=== PATIENT | male | born 1945 | race Caucasian/White ===

== ENCOUNTER → 2017-01-27 | Outpatient (CLI) | payer OTHER, MEDICARE | LOC: BMCIMAGING 09:37 | PROVIDERS: ATTEND Orthopaedic Surgery Orthopaedic Surgery of the Spine | DX: Z09 Encounter for follow-up examination after completed treatment for conditions other than malignant neoplasm (principal); Z98.1 Arthrodesis status ==

== ENCOUNTER → 2017-04-26 | Outpatient (CLI) | payer OTHER, MEDICARE | LOC: BMCIMAGING 13:39 | PROVIDERS: ATTEND Orthopaedic Surgery Orthopaedic Surgery of the Spine | DX: Z98.1 Arthrodesis status (principal) ==

== ENCOUNTER → 2017-07-27 | Outpatient (CLI) | payer OTHER, MEDICARE | LOC: BMCIMAGING 13:45 | PROVIDERS: ATTEND Orthopaedic Surgery Orthopaedic Surgery of the Spine | DX: M50.33 Other cervical disc degeneration, cervicothoracic region (principal); Z98.1 Arthrodesis status ==

== ENCOUNTER → 2017-08-15 | Outpatient (CLI) | payer OTHER, MEDICARE | LOC: BMCIMAGING 14:47 | PROVIDERS: ATTEND Orthopaedic Surgery Orthopaedic Surgery of the Spine | DX: Z13.820 Encounter for screening for osteoporosis (principal) ==

== ENCOUNTER → 2018-07-10 | Outpatient (CLI) | payer OTHER, MEDICARE | LOC: BMCIMAGING 13:59 | PROVIDERS: ATTEND Orthopaedic Surgery Hand Surgery | DX: M79.644 Pain in right finger(s) (principal) ==

== ENCOUNTER 2018-08-01 06:46 | Day surgery (SDC) | payer OTHER, MEDICARE ==
[2018-08-01] MEDS ORDERED: LR 1,000 ML IV ONE (07:11)
[2018-08-01] MEDS ORDERED: BUPIVACAINE 0.5% 30 ML SDV ONE (07:54)
[2018-08-01] MEDS ORDERED: ceFAZolin 2 GM/DEXTROSE 100 ML IV ONE (08:21)
--- NOTE | 2018-08-01 08:21 | PDGENHP ---
History & Physical Chief Complaint: BI History of Present Illness: Initially with left groin bulge. Denies redness, drainage. Pain gradually increasing with exercise. Ravi po normally, no N/V. Pertinent Past, Social, Family History: HTN, DM II, CAD, tremor. Laminectomy. NKDA Relevant Physical Exam: BIH, L>R. Reducible, NTTP Cardiorespiratory Assessment: RRR, CTA B. A/P: Risks/benefits of lap BIHR reviewed. Questions answered.
[2018-08-01] MEDS ORDERED: MIDAZOLAM 2 MG/2 ML VIAL IVP ONE (08:34)
--- NOTE | 2018-08-01 08:34 | PDANEPAE ---
ANE History of Present Illness bilateral inguinal hernias, here for laparoscopic repair ANE Past Medical History - Cardiovascular History Hx Hypertension: Yes Hx Arrhythmias: No Hx Chest Pain: No Hx Coronary Artery / Peripheral Vascular Disease: No Hx CHF / Valvular Disease: No Hx Palpitations: No Cardiovascular History Comment: NO CP - Pulmonary History Hx COPD: No Hx Asthma/Reactive Airway Disease: No Hx Recent Upper Respiratory Infection: No Hx Oxygen in Use at Home: No Hx Sleep Apnea: No Sleep Apnea Screening Result - Last Documented: Positive Pulmonary History Comment: HERMILA Triggers only - Neurologic History Hx Cerebrovascular Accident: No Hx Seizures: No Hx Dementia: No - Endocrine History Hx Diabetes: Yes Endocrine History Comment: DM II - Renal History Hx Renal Disorders: No Renal History Comment: UTI 05/2018 - Liver History Hx Hepatic Disorders: No - Neurological & Psychiatric Hx Hx Neurological and Psychiatric Disorders: Yes Neurological / Psychiatric History Comment: DEPRESSION - Cancer History Hx Cancer: No - Congenital Disorder History Hx Congenital Disorders: No - GI History Hx Gastrointestinal Disorders: Yes Gastrointestinal History Comment: GERD - Other Health History Other Health History: NEG - Chronic Pain History Chronic Pain: No - Surgical History Prior Surgeries: CERVICAL FUSION. LUMBAR FUSION ANE Review of Systems Review of Systems: - Exercise capacity METS (RN): 5 METS ANE Patient History - Allergies Allergies/Adverse Reactions: No Known Allergies Allergy (Verified 07/17/18 14:22) - Home Medications Home Medications: ALPRAZolam [Xanax 0.25 MG (*)] 06/01/16 [Last Taken 07/31/18] Atenolol [Tenormin 25 mg (*)] 06/01/16 [Last Taken 07/31/18] Atorvastatin Calcium [Lipitor 20 mg (*)] 06/01/16 [Last Taken 07/31/18] Herbals/Supplements -Info Only 06/01/16 [Last Taken 07/25/18] Insulin Glargine,Hum.rec.anlog [Lantus Solostar] 06/01/16 [Last Taken Unknown] Insulin Glargine,Hum.rec.anlog [Lantus Solostar] 06/01/16 [Last Taken 07/31/18 10] Lisinopril [Zestril 10 mg (*)] 06/01/16 [Last Taken 07/31/18] Nateglinide [Starlix] 06/01/16 [Last Taken 07/31/18] Omeprazole [Prilosec 20 mg] 06/01/16 [Last Taken 07/31/18] Ranitidine HCl [Zantac] 06/01/16 [Last Taken 07/31/18] Sertraline HCl [Zoloft 100mg (*)] 06/01/16 [Last Taken 07/31/18] Sertraline HCl [Zoloft 100mg (*)] 50 mg 06/01/16 [Last Taken 07/31/18] metFORMIN SR [Glucophage XR 500 mg (*)] 06/01/16 [Last Taken 07/31/18] sitaGLIPtin PHOSPHATE [Januvia 100 MG (*)] 06/01/16 [Last Taken 07/31/18] Farxiga 05/29/18 [Last Taken 07/31/18] Adult One Daily Multivit Tab 07/17/18 [Last Taken 07/25/18] Tamsulosin HCl 07/17/18 [Last Taken 07/30/18] - NPO status NPO Since - Liquids (Date): 08/01/18 NPO Since - Liquids (Time): 05:00 NPO Since - Solids (Date): 07/31/18 NPO Since - Solids (Time): 21:00 - Smoking Hx Smoking Status: Never smoked - Family Anes Hx Family Hx Anesthesia Complications: NEG ANE Labs/Vital Signs - Vital Signs Blood Pressure: 144/68 Heart Rate: 52 Respiratory Rate: 16 O2 Sat (%): 95 Height: 170.18 cm Weight: 74.843 kg ANE Physical Exam - Airway Neck exam: FROM Mallampati Score: Class 2 Mouth exam: normal dental/mouth exam - Pulmonary Pulmonary: no respiratory distress - Cardiovascular Cardiovascular: regular rate and rhythym - ASA Status ASA Status: III ANE Anesthesia Plan Anesthesia Plan: general endotracheal anesthesia
[2018-08-01] MEDS ORDERED: DEXAMETHASONE 4 MG/ML VIAL ONE (08:45)
[2018-08-01] MEDS ORDERED: PROPOFOL 200 MG/20 ML VIAL ONE (08:45)
[2018-08-01] MEDS ORDERED: LIDOCAINE 2% 100 MG/5 ML SYR ONE (08:45)
[2018-08-01] MEDS ORDERED: fentaNYL 250 MCG/5 ML INJ ONE (08:45)
[2018-08-01] MEDS ORDERED: ROCURONIUM 50 MG/5 ML VIAL ONE (08:45)
[2018-08-01] MEDS ORDERED: PHENYLEPHRINE HCL 100 MCG/ML SYR ONE (08:45)
[2018-08-01] MEDS ORDERED: ONDANSETRON 4 MG/2 ML VIAL ONE (08:45)
[2018-08-01] MEDS ORDERED: ONDANSETRON 4 MG/2 ML VIAL IVP PRN (09:18)
[2018-08-01] MEDS ORDERED: HYDROmorphONE/DILAUDID 2 MG/ML INJ IVP PRN (09:18)
[2018-08-01] MEDS ORDERED: NALOXONE HCL 0.4 MG/ML INJ IVP PRN (09:18)
[2018-08-01] MEDS ORDERED: MEPERIDINE 25 MG/0.5 ML AMP IVP PRN (09:18)
[2018-08-01] MEDS ORDERED: fentaNYL 100 MCG/2 ML INJ IVP PRN (09:18)
[2018-08-01] MEDS ORDERED: LR 500 ML IV PRN (09:18)
[2018-08-01] MEDS ORDERED: HYDROCODONE/APAP 5/325 TAB PO PRN (09:18)
[2018-08-01] MEDS ORDERED: SUGAMMADEX SODIUM 200 MG/2 ML VIAL IVP ONE (09:45)
--- NOTE | 2018-08-01 10:01 | POSTOPPROG ---
Post Op Note Date of Operation: 08/01/18 Surgeon: Armen Cary Anesthesiologist: Dr. Mtz Anesthesia: GET(General Endotracheal) Pre-op Diagnosis: BIH Post-op Diagnosis: BIH Procedure: Lap BIHR Inf/Abcess present in the surg proc area at time of surgery?: No EBL: Minimal
--- NOTE | 2018-08-01 10:15 | POSTANESTH ---
Post Anesthetic Evaluation Cardiovascular Status: Normal, Stable Respiratory Status: Normal, Stable Level of Consciousness/Mental Status: Can Participate in Eval Pain Control: Adequate, Prn Tx Ordered Nausea/Vomiting Control: Adequate, Prn Tx Ordered Complications Possibly Related to Anesthesia: None Noted
--- NOTE | 2018-08-01 11:30 | GOP ---
DATE OF OPERATION: 08/01/2018 SURGEON: Paco Cary MD ANESTHESIA: General endotracheal anesthesia. PREOPERATIVE DIAGNOSIS: Bilateral inguinal hernia. POSTOPERATIVE DIAGNOSIS: Bilateral inguinal hernia. PROCEDURE PERFORMED: Laparoscopic totally extraperitoneal bilateral inguinal hernia repair. FINDINGS: The patient had a large direct and small indirect on the left and a moderate direct and sm all indirect on the right. ESTIMATED BLOOD LOSS: 20 cc. INDICATIONS: This is a 72-year-old male with a history of right groin bulge. Risks, benefits of pro cedure were discussed the patient, questions were answered, he wished to proceed. DESCRIPTION OF PROCEDURE: The patient was placed in the supine position. After the induction of armida quate general endotracheal anesthesia, the patient was prepped and draped in the sterile surgical fas hion. Marcaine 0.5% was injected in the infra-umbilical area and a transverse incision was made, kasi roximately 10 mm in length. This was carried down to the subcutaneous tissue with blunt dissection. The anterior fascia was exposed and incised just lateral to the midline. The preperitoneal space wa s then created bluntly, and the balloon dissector introduced. Once this was appropriately positioned , it was inflated under direct vision using the laparoscope. Once adequate dissection had been obtai claudia, the balloon was deflated and withdrawn. The balloon stabilizer was then placed into the same pr eperitoneal plane. The balloon stabilizer was then inflated. The preperitoneal space was then insufflated with carbon dioxide. Two more trocars were placed, both in the midline in the supraumbilical and mid lower abdomen sites. These were both placed under dire ct vision after injecting 0.5% Marcaine for local anesthesia. Blunt dissection was used to expose Hesselbach's triangle. Danish's ligament was then exposed and th e femoral space explored. Next the space of Bogros was cleared laterally. The cord structures were seen and preserved, and the preperitoneal fat was retracted in a [id number] fashion. The hernia sac was then retracted in a similar fashion. A shaped mesh was then introduced through th e 11-mm trocar and oriented appropriately. It was positioned to ensure coverage of the direct, indir ect, and femoral spaces. The peritoneum and preperitoneal fat were placed over the bottom edge of th e mesh to ensure placement. The carbon dioxide was then allowed to escape and the mesh observed to e nsure positioning. All trocars were then removed under direct vision. Good hemostasis was noted. The fascia at the 11-mm trocar site was closed with 0 Vicryl in an interrupted fashion. The wounds w ere thoroughly irrigated, and the skin was closed with 5-0 Monocryl in a subcuticular stitch. The wo unds were sterilely dressed. The patient was extubated and taken to the post-anesthesia care unit in stable condition. COMPLICATION: None. DRAINS: None. ADDENDUM: A large Bard 3D Max mesh was used on each side. Due to the large size of the direct defec t, an absorbable tacker was used. Tacks were placed in Danish's ligament and above the ilioinguinal ligament as defined by palpation. The epigastrics were carefully avoided. /[id number]/MODL
[2018-08-01 11:53] VITALS: BP 121/61
== END 2018-08-01 11:53 | disposition home or self-care (01) ==
LOC: FSGY 06:46
PROVIDERS: ATTEND Surgery
PROC: 0YUA4JZ Supplement Bilateral Inguinal Region with Synthetic Substitute, Percutaneous Endoscopic Approach (ICD-10-PCS; principal; 2018-08-01 08:30)
DX: K40.20 Bilateral inguinal hernia, without obstruction or gangrene, not specified as recurrent (principal); I10 Essential (primary) hypertension; E11.9 Type 2 diabetes mellitus without complications; I25.10 Atherosclerotic heart disease of native coronary artery without angina pectoris; G25.0 Essential tremor
CPT/HCPCS: C1781; J0690; J1100; J2001; J2250; J2370; J2405; J2704; J3010

== ENCOUNTER 2018-08-04 21:15 | Emergency (ER) | payer OTHER, MEDICARE ==
--- NOTE | 2018-08-04 22:01 | EDPHY ---
H & P Stated Complaint: Tuesday pt had double hernia surgery now has a band in the lower abd Time Seen by Provider: 08/04/18 21:41 HPI/ROS: CHIEF COMPLAINT: Bruising after inguinal hernia surgery HISTORY OF PRESENT ILLNESS: 72-year-old male presents with bruising of the lower abdomen after inguinal hurt he has surgery. He underwent bilateral inguinal hernia repair 3 days ago. He noticed bruising of the lower abdomen today. Since surgery, he has had a minor pain right mid abdomen, no change since then. No pain in the pelvic area. No fever, vomiting or diarrhea. REVIEW OF SYSTEMS: complete 10 point ROS reviewed and is negative except for the noted elements in the HPI - Personal History Current Tetanus/Diphtheria Vaccine: Yes Current Tetanus Diphtheria and Acellular Pertussis (TDAP): Yes Tetanus Vaccine Date: < 10 YEArs - Medical/Surgical History Hx Asthma: No Hx Chronic Respiratory Disease: No Hx Diabetes: Yes Hx Cardiac Disease: No Hx Renal Disease: No Hx Cirrhosis: No Hx Alcoholism: No Hx HIV/AIDS: No Hx Splenectomy or Spleen Trauma: No Other PMH: DIABETES, ACID REFLUX,SPOKANE, DIABETES, HTN, HYPERCHOL, FUSION C5-6-7 , HERNIA - Social History Smoking Status: Never smoked Alcohol Use: Sober Drug Use: None - Physical Exam Exam: General Appearance: Alert, pleasant Eyes: Pupils equal and round, no conjunctival pallor ENT, Mouth: Mucous membranes moist Neck: Normal inspection Respiratory: Lungs are clear to auscultation Cardiovascular: Regular rate and rhythm Gastrointestinal: Abdomen is soft and nontender, ecchymosis of the lower abdominal wall, extending to the pelvic area, no tenderness over this area of ecchymosis. Neurological: A&O, nonfocal, normal gait Skin: Warm and dry Extremities: Normal inspection Psychiatric: Mood and affect normal Constitutional: Initial Vital Signs Temperature (C) 36.4 C 08/04/18 21:17 Heart Rate 72 08/04/18 21:17 Respiratory Rate 16 08/04/18 21:17 Blood Pressure 161/73 H 08/04/18 21:17 O2 Sat (%) 94 08/04/18 21:17 O2 Delivery Mode Room Air Allergies/Adverse Reactions: No Known Allergies Allergy (Verified 08/04/18 21:21) Home Medications: Medication Instructions Recorded ALPRAZolam [Xanax 0.25 MG (*)] 06/01/16 Atenolol [Tenormin 25 mg (*)] 06/01/16 Atorvastatin Calcium [Lipitor 20 06/01/16 mg (*)] Herbals/Supplements -Info Only 06/01/16 Insulin Glargine,Hum.rec.anlog 06/01/16 [Lantus Solostar] Insulin Glargine,Hum.rec.anlog 06/01/16 [Lantus Solostar] Lisinopril [Zestril 10 mg (*)] 06/01/16 Nateglinide [Starlix] 06/01/16 Omeprazole [Prilosec 20 mg] 06/01/16 Ranitidine HCl [Zantac] 06/01/16 Sertraline HCl [Zoloft 100mg (*)] 06/01/16 Sertraline HCl [Zoloft 100mg (*)] 50 mg 06/01/16 metFORMIN SR [Glucophage XR 500 mg 06/01/16 (*)] sitaGLIPtin PHOSPHATE [Januvia 100 06/01/16 MG (*)] Farxiga 05/29/18 Adult One Daily Multivit Tab 07/17/18 Tamsulosin HCl 07/17/18 Medical Decision Making ED Course/Re-evaluation: This patient presents with postoperative ecchymosis of the lower abdominal wall. No evidence of infection or serious/persistent bleeding. I feel that he is safe and stable for discharge home. Differential Diagnosis: Differential diagnosis includes though it is not limited to abscess, persistent hemorrhage, diverticulitis, pyelonephritis, bowel perforation, small bowel obstruction. - Data Points Laboratory Results: Laboratory Results 08/04/18 21:45 Departure - Departure Disposition: Home, Routine, Self-Care Clinical Impression: Superficial bruising of abdominal wall Condition: Fair Instructions: Ecchymosis (ED) Additional Instructions: You have bruising under the skin after surgery. This should resolve in the next couple of weeks. Return for worsening pain, any concerns. Referrals: Hardeep Torres MD [Primary Care Provider] - As per Instructions
[2018-08-04 22:06] LABS: PLATELET COUNT 177 10^3/uL (150-400)
[2018-08-04 22:59] VITALS: BP 128/64
== END 2018-08-04 22:59 | disposition home or self-care (01) ==
DX: L76.82 Other postprocedural complications of skin and subcutaneous tissue (principal)

== ENCOUNTER → 2018-10-30 | Outpatient (CLI) | payer OTHER | LOC: BMCIMAGING 15:59 | PROVIDERS: ATTEND Internal Medicine | DX: R07.9 Chest pain, unspecified (principal) ==